=== PATIENT | male | born 1960 | race Caucasian/White ===

== ENCOUNTER 2019-09-19 08:06 | Outpatient (CLI) | payer OTHER, SELFPAY ==
--- NOTE | ~2019-09-19 | CT_ITS ---
EXAMINATION: CT abdomen pelvis wo con DATE: 09/19/2019 08:27 INDICATION: Unilateral inguinal hernia. Abdomen pain. TECHNIQUE: Computed tomography (CT) of the abdomen and pelvis was performed without intravenous contr ast. The dose-length product was 774.50 mGy-cm. Automated exposure control and iterative reconstructi on technique were employed. COMPARISON: None. FINDINGS: Lung bases are unremarkable. Heart size normal. No significant pleural or pericardial effus ion. The liver, spleen, pancreas, adrenal glands are unremarkable. There are multiple nonobstructing bilat eral renal stones. Small subcentimeter hypodensity exophytic from the right kidney, most likely benig n cysts. There is atherosclerosis of the aorta without evidence for aneurysm. Small fat-containing in guinal hernias. There is colonic diverticulosis without inflammation surrounding the sigmoid colon, consistent with a cute diverticulitis. No evidence for perforation or abscess. Gallbladder is present. Nonobstructing b owel gas pattern. Gallbladder is present. No lymphadenopathy. Moderate lumbar spondylosis. IMPRESSION: 1. Acute uncomplicated sigmoid diverticulitis. 2: Nonobstructing bilateral nephrolithiasis. Reviewed, dictated and finalized at location A.
== END 2019-09-19 08:07 | disposition home or self-care (01) ==
PROVIDERS: PCP Emergency Medicine; Referring Provider Surgery; Visit Provider Emergency Medicine
DX: K40.90 Unilateral inguinal hernia, without obstruction or gangrene, not specified as recurrent (principal); K57.32 Diverticulitis of large intestine without perforation or abscess without bleeding; N20.0 Calculus of kidney
CPT/HCPCS: 74176

== ENCOUNTER 2019-11-16 01:39 | Outpatient (CLI) | payer OTHER, SELFPAY ==
[2019-11-16 18:53] LABS: SARS-CoV-2 RNA PCR Positive
== END 2019-11-16 01:40 | disposition home or self-care (01) ==
LOC: ANHCOVIDDT 01:40
PROVIDERS: PCP Emergency Medicine; Visit Provider Internal Medicine Gastroenterology
DX: Z01.812 Encounter for preprocedural laboratory examination (principal); U07.1 COVID-19
CPT/HCPCS: 87635; C9803; U0003

== ENCOUNTER 2019-12-13 00:36 | Outpatient (CLI) | payer OTHER, SELFPAY ==
[2019-12-13 16:39] LABS: SARS-CoV-2 RNA PCR Negative
== END 2019-12-13 00:37 | disposition home or self-care (01) ==
LOC: ANHCOVIDDT 00:36
PROVIDERS: PCP Emergency Medicine; Visit Provider Surgery
DX: Z01.812 Encounter for preprocedural laboratory examination (principal); Z11.59 Encounter for screening for other viral diseases
CPT/HCPCS: 87635; C9803; U0003

== ENCOUNTER 2019-12-13 08:28 | Outpatient (CLI) | payer OTHER, SELFPAY ==
--- NOTE | 2019-12-13 08:42 | ECG_ITS ---
Measurements Intervals [place] Rate: 55 P: 32 [place]: 210 QRS: -5 QRSD: 84 T: 6 QT: 399 QTc: 384 Interpretive Statements SINUS BRADYCARDIA WITH FIRST DEGREE AV BLOCK INCOMPLETE RIGHT BUNDLE BRANCH BLOCK BORDERLINE T WAVE ABNORMALITY- INFERIOR LEADS ABNORMAL ECG Electronically Signed On 12-13-2019 8:54:07 CDT by Eduardo Whiting D.O.
== END 2019-12-13 08:29 | disposition home or self-care (01) ==
PROVIDERS: PCP Emergency Medicine; Visit Provider Surgery
DX: Z01.810 Encounter for preprocedural cardiovascular examination (principal); R94.31 Abnormal electrocardiogram [ECG] [EKG]; I10 Essential (primary) hypertension
CPT/HCPCS: 93005

== ENCOUNTER 2019-12-15 01:17 | Day surgery (SDC) | payer OTHER, SELFPAY ==
[2019-11-01 12:17] VITALS: BMI 27.7
[2019-12-02 12:27] VITALS: BMI 27.9
--- NOTE | 2019-12-13 16:22 | PM.SD ---
Same Day Admit/Disch: HPI History of Present Illness Chief complaint: Right Inguinal Hernia Narrative: Hemal Dixon is a 59 year old male Patient was treated for diverticulitis back in August. He had a CT scan there which suggested inguinal hernia. He was seen in my office towards the end of August in found to have a reducible right inguinal hernia. His diverticulitis has cleared. It was the 1st episode and no further treatment is recommended. He is taken to surgery now for right inguinal hernia repair. He has had no previous hernia surgery. [facility] Past Medical History Medical History Diverticulitis large intestine History of high blood pressure History of high cholesterol History of kidney stones HTN (hypertension) Surgical History Surgical History History of sinus surgery about 1995 at [facility] in [place] History of vasectomy had a vasectomy in 2002 at [place] Family History Family History Father Hypertension, Onset Age: 78 Family history of elevated blood lipids, Onset Age: 78 Family history of cardiovascular disease, Onset Age: 78 Family history of coronary artery disease, Onset Age: 78 Cerebrovascular accident Family history of kidney disease Family history of congestive heart failure Mother Family history of arthritis Hypertension Family history of heart disease in male family member before age 55 Social History Social History Years smoked: 5 Smoking status: Former smoker Tobacco type: cigarettes Second hand tobacco smoke exposure: No Additional smoking assessment comments: quit in 1999; smoked for about 5 years; smoked less than a half of pack Alcohol intake: never Substance use: never Substance use type: does not use Living arrangements: with family Additional living arrangements comments: and daughter Spiritual care concerns: No Same Day Admit/Disch: Med Pre-admit Medications Home Medications Medication Instructions Recorded Confirmed Type ascorbate calcium (vitamin C) 500 500 mg PO DAILY 05/17/19 12/15/19 History mg tablet cholecalciferol (vitamin D3) 50 2,000 unit PO BID tablet 05/17/19 12/15/19 History mcg (2,000 unit) tablet cinnamon bark 500 mg capsule See Rx Instructions .ROUTE .COMPLEX 05/17/19 12/15/19 History glucosamine HCl 1,500 mg tablet 1,500 mg PO BID tablet 05/17/19 12/15/19 History multivitamin 1 tablet PO .COMPLEX 05/17/19 12/15/19 History saw palmetto fruit 450 mg capsule 450 mg PO BID 05/17/19 12/15/19 History zinc 50 mg tablet 50 mg PO DAILY 05/17/19 11/11/19 History metoprolol tartrate 50 mg PO BID 11/01/19 12/15/19 History simvastatin 10 mg PO HS 11/01/19 11/11/19 History hydrocodone-acetaminophen 1 - 2 tablet PO Q6H PRN #10 tablet 12/15/19 Rx ketorolac 10 mg PO Q6H 4 Days #16 tablet 12/15/19 Rx Exam Const: General: cooperative, comfortable, no acute distress, alert and awake; No confusion Orientation/consciousness: No confusion HENMT: Head: normocephalic, atraumatic, no contusions and no scalp lesions Ears: external ears normal General nose exam: Normal external nose present Face and sinus: face symmetric and dry mucous membranes Mouth: Yes Normal oral and palatal mucosa present and Yes tongue normal Throat: posterior oropharynx normal Eyes: Conjunctivae: conjunctivae normal Sclera: sclerae normal Pupils: Equal, round and reactive pupils present EOM: EOMs intact bilaterally Neck: Neck: normal visual inspection, no lymphadenopathy, trachea midline, supple, nontender and no JVD Thyroid: abnormal thyroid Resp: Effort & Inspection: normal respiratory effort Auscultation: clear to auscultation bilaterally Cardio: Rate: regular rate Rhythm: regular rhythm GI: In
--- NOTE | 2019-12-15 06:48 | WPDHPUPDATE1 ---
History and Physical Update Update Date/Time: 12/15/19 06:48 History and Physical has been reviewed, including an updated exam of the patient. There are NO changes in the patient's condition. Risks, benefits, and alternatives have been discussed and questions answered. Patient agrees to proceed with procedure.
[2019-12-15 08:08] VITALS: BP 119/73; PULSE 53; RESP 16; TEMP 36.6; O2SAT 100
[2019-12-15] MEDS: LACTATED RINGERS 1,000 ML 30 ML IV CONT ×2 (09:03→11:28)
[2019-12-15] MEDS: ACETAMINOPHEN 500 MG TABLET 1000 MG PO (09:03)
[2019-12-15] MEDS: KETOROLAC 15 MG/ML VIAL (*BKC) IV PUSH (09:05)
--- NOTE | 2019-12-15 09:43 | WPDANESEPPF ---
Anes - Initial Pre Proc Eval Procedure: Operation Date: 12/15/19 10:00 Proposed Procedures p Right Inguinal Hernia Repair - Silviano Ricketts MD Date/Time: 12/15/19 09:43 Surgeon: Silviano Ricketts MD Pre Op Diagnosis: Right Inguinal Hernia Patient Data Age: 59 Gender: M Height: 6 ft 1 in Weight: 95.2 kg Last Vital Signs Temp 36.6 C 12/15/19 08:08 Pulse 53 L 12/15/19 08:08 Resp 16 12/15/19 08:08 BP 119/73 12/15/19 08:08 Pulse Ox 100 12/15/19 08:08 Allergies Allergy/AdvReac Type Severity Reaction Status Date / Time No Known Allergies Allergy Verified 12/15/19 08:21 Home Medications Medication Instructions Recorded Confirmed Type ascorbate calcium (vitamin C) 500 500 mg PO DAILY 05/17/19 12/15/19 History mg tablet cholecalciferol (vitamin D3) 50 2,000 unit PO BID tablet 05/17/19 12/15/19 History mcg (2,000 unit) tablet cinnamon bark 500 mg capsule See Rx Instructions .ROUTE .COMPLEX 05/17/19 12/15/19 History glucosamine HCl 1,500 mg tablet 1,500 mg PO BID tablet 05/17/19 12/15/19 History multivitamin 1 tablet PO .COMPLEX 05/17/19 12/15/19 History saw palmetto fruit 450 mg capsule 450 mg PO BID 05/17/19 12/15/19 History zinc 50 mg tablet 50 mg PO DAILY 05/17/19 11/11/19 History metoprolol tartrate 50 mg PO BID 11/01/19 12/15/19 History simvastatin 10 mg PO HS 11/01/19 11/11/19 History Patient hx anesthesia problems: none Family hx anesthesia problems: none PMFSH Past Medical History Medical History Diverticulitis large intestine History of high blood pressure History of high cholesterol History of kidney stones HTN (hypertension) Surgical History Surgical History History of sinus surgery about 1995 at [facility] History of vasectomy had a vasectomy in 2002 at [facility] Family History Family History Father Hypertension, Onset Age: 78 Family history of elevated blood lipids, Onset Age: 78 Family history of cardiovascular disease, Onset Age: 78 Family history of coronary artery disease, Onset Age: 78 Cerebrovascular accident Family history of kidney disease Family history of congestive heart failure Mother Family history of arthritis Hypertension Family history of heart disease in male family member before age 55 Social History Social History Years smoked: 5 Smoking status: Former smoker Tobacco type: cigarettes Second hand tobacco smoke exposure: No Additional smoking assessment comments: quit in 1999; smoked for about 5 years; smoked less than a half of pack Alcohol intake: never Substance use: never Substance use type: does not use Living arrangements: with family Additional living arrangements comments: and daughter Spiritual care concerns: No Anes - Eval Final PreProcedure Day of Procedure 12/15/19 09:43 Patient weight: overweight Heart: regular rate and rhythm Lungs: clear to auscultation Airway: Mallampati scale class 1 Neurological: alert and oriented Last oral intake: >/= 8 hours ASA classification: II Emergent: no Anesthetic plan: proceed Anesthesia type and monitoring: general GIVS and standard monitoring Informed Consent: The patient's anesthetic plan and its attendant risks and benefits were discussed with the patient/family/POA. Questions were solicited and answers provided to the satisfaction of the patient/family/POA.
[2019-12-15] MEDS: ceFAZolin 2 GM/D5W 50 ML 2 GM/50 ML BAG IVPB (10:10)
[2019-12-15 11:28] VITALS: BP 97/60; PULSE 49; RESP 14; O2SAT 95
[2019-12-15 12:00] VITALS: BP 96/68; PULSE 41
[2019-12-15 12:30] VITALS: BP 116/70; PULSE 42
[2019-12-15 13:00] VITALS: BP 128/81; PULSE 40
--- NOTE | 2019-12-15 13:45 | P.OP_ITS ---
Procedure Note - Detailed Date of procedure: 12/15/19 Pre-op diagnosis: Right Inguinal Hernia Right inguinal hernia Post-op diagnosis: other (Direct inguinal hernia) Procedure performed: right inguinal hernia repair with 8 centimeter Parietex hernia mesh system Description of procedure: The patient was taken to surgery and IV sedation was administered. The right groin and genitalia were prepped and draped. The proposed incision was marked on the skin and then local anesthesia was infiltrated into the skin and the deeper subcutaneous tissues. Incision was made and dissection was carried down through Светлана's fascia to the external oblique aponeurosis. Crossing veins were cauterized and divided. The external oblique aponeurosis was then exposed as was the external ring. Additional local anesthetic was infiltrated deep to the aponeurosis in the area of the spermatic cord and inguinal canal contents. We then opened the external oblique aponeurosis laterally and extended this incision medially through the external ring. The leaves of the aponeurosis were freed from the underlying inguinal canal contents. Care was taken not to injure the ileoinguinal nerve which was left attached to the spermatic cord. The spermatic cord was then mobilized medially on a [place] drain. It was mobilized back to the internal ring. The direct hernia was dissected free from the spermatic cord. It was dissected back to its neck.It was quite a large direct hernia occupying almost the entire direct space. The sac was then incised circumferentially just off the neck. It was divided through the transversalis fascia circumferentially. The hernia sac was then dunked into the retroperitoneum. An 8 centimeter Parietex comanche was chosen. It was folded to form a plug. The plug was placed in the defect. The edges were sutured to the transversalis fascia with interrupted 3 0 Vicryl suture. The hernia defect was also partially closed with interrupted 3 0 Vicryl suture. The patch was then cut to the appropriate size. It was placed over the inguinal canal floor with the lateral leaves passing beyond the cord. The cord and ileoinguinal nerve were then laid over the patch. The external oblique aponeurosis was closed with interrupted 3 0 Vicryl suture. Светлана's fascia was closed with interrupted 3 0 Vicryl suture. Four 0 Vicryl subcutaneous and subcuticular skin stitches were placed. The skin was finally closed with a running 4 0 Monocryl skin suture. The wound was dressed with Exofin surgical adhesive. Patient was awakened and taken to recovery in good condition. Sponge and needle counts were correct x2. Anesthesia: MAC and local (0.5% Marcaine mixed with Exparel) Surgeon: Silviano Ricketts MD Cashier Host/Hostess: Megan FOUNTAIN Estimated blood loss (mL): 5 Drains: No Packing: No Pathology: none sent Complications: None Condition: stable Disposition: PACU Findings: Large direct inguinal hernia
== END 2019-12-15 13:15 | disposition home or self-care (01) ==
PROVIDERS: PCP Emergency Medicine; Visit Provider Surgery
PROC: (CPT 49505; principal; 2019-12-15 10:00)
DX: K40.90 Unilateral inguinal hernia, without obstruction or gangrene, not specified as recurrent (principal); I10 Essential (primary) hypertension; E78.5 Hyperlipidemia, unspecified; Z87.891 Personal history of nicotine dependence
CPT/HCPCS: 49505; A9270; C1781; C9290; J0690; J1885; J2250; J2704; J3010; J7120

== ENCOUNTER 2020-01-22 00:40 | Outpatient (CLI) | payer OTHER, SELFPAY ==
[2020-01-22 18:04] LABS: SARS-CoV-2 RNA PCR Negative
== END 2020-01-22 00:41 | disposition home or self-care (01) ==
LOC: ANHCOVIDDT 00:40
PROVIDERS: PCP Emergency Medicine; Visit Provider Internal Medicine Gastroenterology
DX: Z01.812 Encounter for preprocedural laboratory examination (principal); Z20.828 Contact with and (suspected) exposure to other viral communicable diseases
CPT/HCPCS: 87635; C9803; U0003

== ENCOUNTER 2020-01-25 00:02 | Day surgery (SDC) | payer OTHER, SELFPAY ==
[2019-11-11 14:46] VITALS: BMI 27.6
[2020-01-17 13:33] VITALS: BMI 27.0
[2020-01-25 08:35] VITALS: BP 115/77; PULSE 62; RESP 16; TEMP 36.7; O2SAT 99; BMI 26.2
[2020-01-25] MEDS: LACTATED RINGERS 1,000 ML 150 ML IV CONT (08:47)
--- NOTE | 2020-01-25 09:33 | WPDANESEPPF ---
Anes - Initial Pre Proc Eval Procedure: Operation Date: 01/25/20 09:45 Proposed Procedures p Colonoscopy - Ray Melendez MD Date/Time: 01/25/20 09:33 Surgeon: Ray Melendez MD Pre Op Diagnosis: diverticulitis Patient Data Age: 59 Gender: M Height: 6 ft 1 in Weight: 90.3 kg Last Vital Signs Temp 98.0 F 01/25/20 08:35 Pulse 62 01/25/20 08:35 Resp 16 01/25/20 08:35 BP 115/77 01/25/20 08:35 Pulse Ox 99 01/25/20 08:35 Allergies Allergy/AdvReac Type Severity Reaction Status Date / Time No Known Allergies Allergy Verified 01/25/20 08:32 Home Medications Medication Instructions Recorded Confirmed Type ascorbate calcium (vitamin C) 500 500 mg PO DAILY 05/17/19 01/17/20 History mg tablet cholecalciferol (vitamin D3) 50 2,000 unit PO BID tablet 05/17/19 01/17/20 History mcg (2,000 unit) tablet cinnamon bark 500 mg capsule See Rx Instructions .ROUTE .COMPLEX 05/17/19 01/17/20 History glucosamine HCl 1,500 mg tablet 1,500 mg PO BID tablet 05/17/19 01/17/20 History multivitamin 1 tablet PO .COMPLEX 05/17/19 01/17/20 History saw palmetto 450 mg capsule 450 mg PO BID 05/17/19 01/17/20 History zinc 50 mg tablet 50 mg PO DAILY 05/17/19 01/17/20 History metoprolol tartrate 50 mg PO BID 11/01/19 01/17/20 History simvastatin 10 mg PO HS 11/01/19 01/17/20 History peg 3350-electrolytes 236 240 ml PO Q10M #4000 ml 01/14/20 01/17/20 Rx gram-22.74 gram-6.74 gram-5.86 gram solution sodium,potassium,mag sulfates 17.5 480 ml PO .COMPLEX #480 ml 01/19/20 Rx gram-3.13 gram-1.6 gram oral soln Patient hx anesthesia problems: none Family hx anesthesia problems: none PMFSH Past Medical History Medical History (Reviewed 01/13/20 @ 09:19 by Savannah Cantrell, [facility]) Diverticulitis large intestine History of kidney stones HTN (hypertension) Hyperlipidemia Surgical History Surgical History H/O inguinal hernia repair 12/15/2019 s/p right inguinal hernia repair with 8 centimeter Parietex hernia mesh system History of sinus surgery about 1995 at [facility] History of vasectomy had a vasectomy in 2002 at [place] Family History Family History (Reviewed 01/13/20 @ 09:19 by Savannah Cantrell [facility]) Father Hypertension, Onset Age: 78 Family history of elevated blood lipids, Onset Age: 78 Family history of cardiovascular disease, Onset Age: 78 Family history of coronary artery disease, Onset Age: 78 Cerebrovascular accident Family history of kidney disease Family history of congestive heart failure Mother Family history of arthritis Hypertension Family history of heart disease in male family member before age 55 Social History Social History (Reviewed 01/13/20 @ 09:19 by Savannah Cantrell [facility]) Years smoked: 5 Smoking status: Former smoker Tobacco type: cigarettes Second hand tobacco smoke exposure: No Additional smoking assessment comments: quit in 1999; smoked for about 5 years; smoked less than a half of pack Alcohol intake: never Substance use: never Substance use type: does not use Additional living arrangements comments: and daughter Spiritual care concerns: No Anes - Eval Final PreProcedure Day of Procedure 01/25/20 09:33 Patient weight: normal Heart: regular rate and rhythm Lungs: clear to auscultation Airway: Mallampati scale class II Neurological: alert and oriented Last oral intake: >/= 8 hours ASA classification: II Emergent: no Anesthetic plan: proceed Anesthesia type and monitoring: general GIVS and standard monitoring Informed Consent: The patient's anesthetic plan and its attendant risks and benefits were discussed with the patient/family/POA. Questions were solicited and answers provided to the satisfaction of the patient/family/POA.
--- NOTE | 2020-01-25 09:33 | PM.HPGS ---
History of Present Illness History of Present Illness Consent: Risks, benefits, and alternatives have been discussed and questions answered. Patient agrees to proceed with procedure. Chief complaint: diverticulitis Narrative: Hemal Dixon is a 59 year old male here for screening colonoscopy Review of Systems Constitutional: Constitutional: Denies headache(s) and Denies weakness Eyes: Eyes: Denies blurry vision ENT: Reports Normal hearing present, Denies headache(s) and Denies neck pain Cardiovascular: Cardiovascular: Denies chest pain and Denies dyspnea Respiratory: Respiratory: Denies dyspnea Gastrointestinal: Gastrointestinal: Reports no additional gastrointestinal complaints Genitourinary: Genitourinary: Denies dysuria Musculoskeletal: Musculoskeletal: Denies neck pain Integumentary/Breasts: Skin/Breast: Denies dry skin Neurologic: Reports Normal hearing present, Denies headache(s) and Denies weakness Psychiatric: Psychiatric: Denies anxiety Endocrine: Endocrine: Denies change in body appearance Hematologic/Lymphatic: Hematologic/Lymphatic: Denies easy bleeding Allergic/Immunologic: Allergic/Immunologic: Denies urticaria PMF Past Medical History Medical History Diverticulitis large intestine History of kidney stones HTN (hypertension) Hyperlipidemia Surgical History Surgical History H/O inguinal hernia repair 12/15/2019 s/p right inguinal hernia repair with 8 centimeter Parietex hernia mesh system History of sinus surgery about [address] [facility] in [place] History of vasectomy had a vasectomy in 2002 at [place] Family History Family History Father Hypertension, Onset Age: 78 Family history of elevated blood lipids, Onset Age: 78 Family history of cardiovascular disease, Onset Age: 78 Family history of coronary artery disease, Onset Age: 78 Cerebrovascular accident Family history of kidney disease Family history of congestive heart failure Mother Family history of arthritis Hypertension Family history of heart disease in male family member before age 55 Social History Social History Years smoked: 5 Smoking status: Former smoker Tobacco type: cigarettes Second hand tobacco smoke exposure: No Additional smoking assessment comments: quit in 1999; smoked for about 5 years; smoked less than a half of pack Alcohol intake: never Substance use: never Substance use type: does not use Additional living arrangements comments: and daughter Spiritual care concerns: No Meds Home Medications and Allergies Home Medications Medication Instructions Recorded Confirmed Type ascorbate calcium (vitamin C) 500 500 mg PO DAILY 05/17/19 01/17/20 History mg tablet cholecalciferol (vitamin D3) 50 2,000 unit PO BID tablet 05/17/19 01/17/20 History mcg (2,000 unit) tablet cinnamon bark 500 mg capsule See Rx Instructions .ROUTE .COMPLEX 05/17/19 01/17/20 History glucosamine HCl 1,500 mg tablet 1,500 mg PO BID tablet 05/17/19 01/17/20 History multivitamin 1 tablet PO .COMPLEX 05/17/19 01/17/20 History saw palmetto 450 mg capsule 450 mg PO BID 05/17/19 01/17/20 History zinc 50 mg tablet 50 mg PO DAILY 05/17/19 01/17/20 History metoprolol tartrate 50 mg PO BID 11/01/19 01/17/20 History simvastatin 10 mg PO HS 11/01/19 01/17/20 History peg 3350-electrolytes 236 240 ml PO Q10M #4000 ml 01/14/20 01/17/20 Rx gram-22.74 gram-6.74 gram-5.86 gram solution sodium,potassium,mag sulfates 17.5 480 ml PO .COMPLEX #480 ml 01/19/20 Rx gram-3.13 gram-1.6 gram oral soln Allergies Allergy/AdvReac Type Severity Reaction Status Date / Time No Known Allergies Allergy Verified 01/25/20 08:32 Vital Signs Vit
[2020-01-25 09:51] VITALS: BP 95/67; PULSE 59; RESP 16; O2SAT 98
[2020-01-25 10:01] VITALS: BP 112/78; PULSE 51; RESP 14; O2SAT 99
[2020-01-25 10:11] VITALS: BP 110/77; PULSE 54; RESP 18; O2SAT 100
== END 2020-01-25 10:21 | disposition home or self-care (01) ==
PROVIDERS: PCP Emergency Medicine; Visit Provider Internal Medicine Gastroenterology
PROC: 0DJD8ZZ Inspection of Lower Intestinal Tract, Via Natural or Artificial Opening Endoscopic (ICD-10-PCS; CPT 45378; principal; 2020-01-25 09:45)
DX: Z12.11 Encounter for screening for malignant neoplasm of colon (principal); K57.30 Diverticulosis of large intestine without perforation or abscess without bleeding; K64.8 Other hemorrhoids; I10 Essential (primary) hypertension; E78.5 Hyperlipidemia, unspecified; Z87.891 Personal history of nicotine dependence
CPT/HCPCS: 45378; J2704; J7120

== ENCOUNTER 2025-03-04 14:15 | Outpatient (RCR) | payer MEDICARE, OTHER, SELFPAY ==
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
--- NOTE | 2025-01-24 11:41 | OPREHPOC ---
Outpatient Therapy Plan of Care This is a Multidisciplinary Plan of Care that may contain components documented by all disciplines (PT, OT, and ST.) PT Problem 1 PT Problem #1 Knowledge Deficit PT Goal 1 Goal / Goal Update Pt will be independent in HEP Pt will verbalize understanding of diagnosis and prognosis Target Visit 5 PT Problem 2 PT Problem #2 Impaired Range of Motion PT Goal 1 Goal / Goal Update Pt will demonstrate RUE passive flexion of 160 degrees and abduction of 140 degrees for improved glenohumeral motion Target Visit 5 PT Goal 2 Goal / Goal Update Pt will demonstrate RUE active ROM flexion 140 degrees and abduction 130 degrees to show improved muscular rhythms for functional ROM. Target Visit 10 PT Problem 3 PT Problem #3 Impaired Strength PT Goal 1 Goal / Goal Update Pt will demonstrate strength in all tested RTC muscles of 4/5 for improved stability and use of RUE Target Visit 10
--- NOTE | 2025-02-21 10:49 | PCPTNOTE ---
Pt canceled scheduled physical therapy appointment this date due to having a cold.
--- NOTE | 2025-03-04 15:06 | PTOPDC ---
Assessment and note entered by Brianne Tafoya, PT Evaluation Information Assessment Status Discharge Diagnosis Pain in right shoulder ICD-10 Condition Codes (PT) Pain in right shoulder M25.511 Other ICD-10 Condition Codes ( Abnormal posture, stiffness right shoulder joint PT) Subjective Information Feels did well with therapy. Still can make the clunking happen, but otherwise is doing well. Was able to get down [place] boxes and decorations without issue. Pt reports feels a lot better. Perceived improvement: 90% Reported Pain Level Pain Score 0: Self Report Assessment PT Clinical Summary Pt reports feeling 90% better overall since starting therapy. Still can make his shoulder clunk with purposeful rounding and elevation, though does not clunk with normal activity as much and is less intense. He shows improved ROM, improved and equal strength RUE to LUE, and all special tests that were initially positive for possible RTC tear are now negative. Pt has been educated on his HEP to add into his workout regiment to maintain his progress and when to return to [facility] for therapy in the future if is needed. Thus patient is being discharged from therapy for completion of plan of care. Plan of Care PT Services Indicated No
== END 2025-03-04 15:15 | disposition home or self-care (01) ==
LOC: ANHHIPT 14:15
PROVIDERS: PCP Emergency Medicine; Visit Provider Orthopaedic Surgery
DX: M25.511 Pain in right shoulder (principal)
CPT/HCPCS: 97014; 97110; 97112; 97140; 97161; 97530; 97750; G0283